=== PATIENT | female | born 1965 | race African-American/Black ===

== ENCOUNTER 2023-01-05 10:25 | Emergency (ER) | payer OTHER, MEDICAID ==
[~2023-01-05] VITALS: Ht 172.7 cm; Wt 140.0 kg
[2023-01-05] MEDS ORDERED: cloNIDine HCL 0.1 MG TAB PO ONE (11:30)
[2023-01-05 12:14] LABS: Albumin 3.1 g/dL (3.4-5.0); BUN/Creatinine Ratio 16.4 (10.0-20.0); Calcium 8.7 mg/dL (8.5-10.1); Potassium 4.2 mmol/L (3.5-5.1)
[2023-01-05 12:16] LABS: INR 0.97 (0.9-1.15); Partial Thromboplastin Time 29.7 sec (24.6-33.4)
[2023-01-05 12:22] LABS: Bilirubin, Total 0.5 mg/dL (0.2-1.0); Total Protein 6.4 g/dL (6.4-8.2)
[2023-01-05 12:57] LABS: Basophils # (auto) 0 10 ^3/uL (0-0.2); Basophils % (auto) 0.4 % (0.0-2.0); Eosinophils # (auto) 0.1 10 ^3/uL (0-0.8); Eosinophils % (auto) 2.5 % (0.0-7.0); Hematocrit 40.4 % (36.0-46.0); Hemoglobin 13.2 g/dL (12.2-16.2); Lymphocytes # (auto) 1.8 10 ^3/uL (0.4-5.4); Lymphocytes % (auto) 30.2 % (10.0-50.0); Mean Corpuscular Hgb Conc. 32.6 g/dL (32.0-36.0); Mean Corpuscular Volume 91.9 fL (80.0-100.0); Monocytes # (auto) 0.4 10 ^3/uL (0-1.3); Monocytes % (auto) 6.8 % (0.0-12.0); Neutrophils # (auto) 3.6 10 ^3/uL (1.6-8.6); Neutrophils % (auto) 60.1 % (37.0-80.0); Nucleated Red Blood Cells % 0.1 %; Red Blood Cells 4.39 10^6/uL (4.0-5.20); Red Cell Distribution Width 14.8 % (11.8-14.3)
[2023-01-05 13:47] LABS: Urine Bacteria NONE SEEN /hpf (None Seen); Urine Blood Negative /uL (Negative); Urine Specific Gravity 1.014 (1.001-1.035); Urine WBC <1 /hpf (0 - 5)
[2023-01-05 15:58] VITALS: BP 172/70
== END 2023-01-05 15:35 | disposition home or self-care (01) ==
LOC: EDBD 10:25 → ER 10:25
DX: G89.4 Chronic pain syndrome (principal); R51.9 Headache, unspecified; M54.2 Cervicalgia; I10 Essential (primary) hypertension; F17.210 Nicotine dependence, cigarettes, uncomplicated; V89.2XXA Person injured in unspecified motor-vehicle accident, traffic, initial encounter; Y93.I9 Activity, other involving external motion; Y92.89 Other specified places as the place of occurrence of the external cause; Y99.8 Other external cause status
CPT/HCPCS: 36415; 70450; 71045; 72125; 73020; 80053; 81001; 83880; 84484; 85025; 85610; 85730

== ENCOUNTER 2023-12-01 10:15 | Emergency (ER) | payer OTHER, MEDICAID ==
[2023-12-01] MEDS ORDERED: HYDROcodone-ACET 10/325MG TAB PO ONE (11:00)
[2023-12-01] MEDS: HYDROmorphone HCL 2 MG/ML VL/or syr IM ONE (12:06)
[2023-12-01] MEDS: ONDANSETRON HCL 4 MG/2 ML VIAL IM ONE (12:06)
[2023-12-01 12:30] VITALS: BP 140/72; PULSE 62; RESP 18; TEMP 98; O2SAT 99
== END 2023-12-01 12:41 | disposition home or self-care (01) ==
LOC: ER 10:15 → EDBD 10:15 → ER 12:41
DX: I82.501 Chronic embolism and thrombosis of unspecified deep veins of right lower extremity (principal); G89.4 Chronic pain syndrome; E11.9 Type 2 diabetes mellitus without complications; E78.5 Hyperlipidemia, unspecified; I10 Essential (primary) hypertension; F17.210 Nicotine dependence, cigarettes, uncomplicated; F12.10 Cannabis abuse, uncomplicated; M25.561 Pain in right knee; M25.551 Pain in right hip; Z88.6 Allergy status to analgesic agent; Z79.01 Long term (current) use of anticoagulants
CPT/HCPCS: 93971; 96372; 99285; J1170; J2405